=== PATIENT | female | born 1985 | race Two or more races ===

== ENCOUNTER 2024-10-22 21:04 | Emergency (ER) | payer MEDICAID, SELFPAY ==
[2024-10-22 21:05] VITALS: BMI 40.7
--- NOTE | 2024-10-22 21:08 | EKG_ITS ---
[facility] Test Date: 2024-10-22 Pat Name: GENNA MANE Department: Room: - Gender: Female Table Tender: : 1985 Requested By: ED Temporary Provider Order Number: [id number] Reading MD: ED Temporary Provider Measurements Intervals [place] Rate: 76 P: 48 MS: 153 QRS: 12 QRSD: 105 T: 49 QT: 381 QTc: 429 Interpretive Statements SINUS RHYTHM NONSPECIFIC T-WAVE ABNORMALITY No previous ECG available for comparison /[id number]/S0/[id number].pdf
[2024-10-22 21:36] VITALS: BP 155/98; PULSE 78; RESP 18; TEMP 36.8; O2SAT 98
--- NOTE | 2024-10-22 21:58 | XR_ITS ---
Examination: PA chest single view TECHNIQUE: Upright PA chest single view Date and time:: October 22, 2024 10:11 PM INDICATIONS: Chest pain shortness of breath beginning several weeks ago. FINDINGS: Poor inspiratory effort Normal heart size. No pneumonia or pulmonary edema. Osseous structures are intact IMPRESSION: No pneumonia or pulmonary edema
--- NOTE | 2024-10-22 22:02 | PD.EDCHEST ---
ED Chest Pain RME/HPI General Chief Complaint: Chest Pain Stated Complaint: Chest Pain x20 mins Time Seen by Provider: 10/22/24 21:57 Arrival date/time: 10/22/24 21:04 39F with no significant PMH presents to ED with several weeks of intermittent CP and SOB. Limitations: no limitations Related Data Previous Rx's ?Medication ?Instructions ?Recorded polymyxin B sulfate 10,000 1 drp ophthalmic (eye) Q3H #10 mL 09/11/20 unit-trimethoprim 1 mg/mL eye drops Allergies Allergy/AdvReac Type Severity Reaction Status Date / Time No Known Allergies Allergy Verified 09/11/20 14:53 Review of Systems Review of Systems Systems Reviewed: All systems reviewed, normal except as documented Constitutional Constitutional: Reports system reviewed and no additional complaints, except as documented, Denies fever(s) and Denies headache(s) ENT Ears, Nose, Mouth, and Throat: Denies disequilibrium and Denies headache(s) Cardiovascular Cardiovascular: Reports system reviewed and no additional complaints, except as documented, Reports as per HPI, Reports chest pain and Reports dyspnea Respiratory Respiratory: Reports system reviewed and no additional complaints, except as documented, Denies cough and Reports dyspnea Gastrointestinal Gastrointestinal: Reports system reviewed and no additional complaints, except as documented, Denies abdominal pain, Denies nausea and Denies vomiting Neurologic Neurologic: Reports system reviewed and no additional complaints, except as documented, Denies confusion, Denies disequilibrium and Denies headache(s) Psychiatric Psychiatric: Denies confusion Past Medical History Social History SMOKING STATUS: Never smoker ED Exam General Limitations: Present no limitations General appearance: Present alert, in no apparent distress and anxious Head Head exam: Present atraumatic Eye Eye exam: Present normal appearance, PERRL and EOMI ENT ENT exam: Present normal exam, normal oropharynx and mucous membranes moist Neck Neck exam: Present normal inspection, full ROM and trachea midline Chest Chest inspection: Present normal inspection and symmetric chest wall rise Respiratory Respiratory exam: Present normal lung sounds bilaterally Cardiovascular Cardiovascular exam: Present regular rate, normal rhythm and normal heart sounds Abdominal Exam Abdominal exam: Present soft and normal bowel sounds Extremities Exam Extremities exam: Present normal inspection and full ROM Back Exam Back exam: Present normal inspection and full ROM Neurological Exam Neurological exam: Present alert, oriented X3 and CN II-XII intact Psychiatric Psychiatric exam: Present normal affect and normal mood Skin Skin exam: Present warm, dry, intact and normal color Course Quality Measures none Orders Category Date Time Status EKG (ED ONLY) *Do not use* NOW Care 10/22/24 21:08 Completed EKG (ED Only) Stat Exams 10/22/24 21:08 Draft XR chest 1V portable Stat Exams 10/22/24 21:58 Completed B-Type Natriuretic Peptide Stat Lab 10/22/24 22:13 Completed CBC Stat Lab 10/22/24 22:13 Completed Comprehensive Metabolic Panel Stat Lab 10/22/24 22:13 Completed D-Dimer Stat Lab 10/22/24 22:13 Completed Troponin I Stat Lab 10/22/24 22:13 Completed Vital Signs Vital signs: Vital Signs Temperature 98.3 F 10/22/24 21:36 Pulse Rate 78 10/22/24 21:36 Respiratory Rate 18 10/22/24 21:36 Blood Pressure 155/98 H 10/22/24 21:36 Pulse Oximetry (%) 98 10/22/24 21:36 Oxygen Delivery Method Room Air 10/22/24 21:36 O2 at 98% on RA and WNLs Chest Pain MDM Narrative MDM Narrative:: 39F with no significant PMH presents to ED with several weeks of intermittent CP and SOB. Physical exam reveals clear lungs. Normal WOB. RRR. Patient is afebrile, alert, but anxious. EKG is NSR with non-specific T-wave changes. CXR unremarkable. Normal BNP, D-dimer, and trop. CMP unremarkable. No leukocytosis or gross anemia. Patient data External records reviewed:: [facility] previous records Clinical information provided by:: patient Social determinants that could affect healthcare access:: none Patient has the following chronic illnesses:: none How is presenting disease/condition affected by chronic disease/condition?: no chronic disease Evaluation data The following diagnostics were reviewed and interpreted by me:: lab results, radiology exam(s) and EKG tracing(s) Lab and/or radiology exams considered but not ordered:: ordered Interpretation Summary: above Medications / Prescriptions Medications or Prescriptions considered but not ordered:: not ordered Medication administrations:: n/a Consultations Consultation(s) initiated? (list below): No Diagnosis Chest Pain Differential Diagnosis: fracture of rib, pneumothorax, stable angina, unstable angina pectoris, atypical chest pain, st elevation myocardial infarction, costochondritis, chest pain, biliary colic and other (PE) Most likely diagnosis given after review of the tests above:: atypical chest pain Admission Indicated Admission indicated?: not indicated Admission Request Was there a request for admission?: No Disposition Plan Disposition Plan: Discharge Discharge Attestation Discharge Attestation: The patient and all family members were given an opportunity to ask questions and understood the discharge instructions. Discharge instructions specifically effects, indications for sooner follow up or return to the emergency department, and the expected course of current diagnosis. Patient condition: Stable Discharge Plan Plan Patient Disposition: HOME (Self Care) Discharge Disposition comment: Stable Prescriptions/Referrals Prescriptions/Med Rec: No Action polymyxin B sulf-trimethoprim 10,000 unit- 1 mg/mL drops 1 drp ophthalmic (eye) Q3H Qty: 10 0RF Rx Instructions: while awake; do not exceed 6 doses in 24 hours Referrals: No Primary/Family,Physician [Primary Care Provider] - In 1 week Problem List Clinical Impression: Atypical chest pain Patient/Caregiver Discharge Instructions Education Materials: ED Chest Pain, Uncertain Cause Additional Instructions: Please follow-up with PCP within 24-48 hours and return immediately if symptoms worsen. Print Language: Polish Stand Alone Forms: Work/School Release, Patient Portal Info Letter PA/CENTRIFUGE SEPARATOR OPERATOR Supervising Physician RICARDO/CEASAR Supervising Physician: Dr. Raymundo
[2024-10-22 22:27] LABS: Basophils # (Auto) 0.0 Thou/mm3 (0.0-0.2); Basophils % (Auto) 0 % (0-2.5); Eosinophils # (Auto) 0.2 Thou/mm3 (0.0-0.5); Eosinophils % (Auto) 2 % (0-10); Hematocrit 39.7 % (36.0-46.0); Hemoglobin 13.0 g/dL (12.0-16.0); Immature Granulocytes Auto 0.02 Thou/mm3 (0.00-0.00); Lymphocytes # (Auto) 2.7 Thou/mm3 (1.0-4.8); Lymphocytes % (Auto) 30 % (10-50); Mean Corpuscular HGB Conc 32.7 g/dl (31.0-37.0); Mean Corpuscular Hemoglobin 27.8 pg (25.0-35.0); Mean Corpuscular Volume 85 fL (80-100); Monocytes # (Auto) 0.6 Thou/mm3 (0.0-0.8); Monocytes % (Auto) 6 % (0-12); Neutrophils # (Auto) 5.5 Thou/mm3 (1.8-7.7); Neutrophils % (Auto) 61 % (37-80); Nucleated Red Blood Cell # 0.00 Thou/mm3 (0.00-0.00); Nucleated Red Blood Cell % 0 /100 WBC (0); Platelet Count 270 Thou/mm3 (140-440); RDW Standard Deviation 43.8 fL (36.4-46.3); Red Blood Count 4.68 Miln/mm3 (4.00-5.20); White Blood Count 9.0 Thou/mm3 (3.6-11.0)
[2024-10-22 22:34] LABS: B-Type Natriuretic Peptide < 20 pg/mL (0-100)
[2024-10-22 22:35] LABS: Alanine Aminotransferase 26 U/L (10-49); Albumin, Serum 4.1 gm/dL (3.5-5.0); Albumin/Globulin Ratio 1.7 (1.2-2.2); Alkaline Phosphatase 94 U/L (46-116); Anion Gap 8 (7-16); Aspartate Amino Transferase 25 U/L (0-34); BUN/Creatinine Ratio 20 Ratio (12-20); Bilirubin,Total 0.2 mg/dL (0.3-1.2); Blood Urea Nitrogen 12 mg/dL (9-23); Calcium 9.4 mg/dL (8.3-10.6); Calcium (Corrected) 9.4 mg/dL (8.5-10.1); Carbon Dioxide 30.6 mMol/L (20.0-31.0); Chloride 105 mMol/L (98-107); Creatinine (Component) 0.6 mg/dL (0.6-1.3); Estimated Creatinine Clearance 168.9 mL/min (>60); Globulin 2.4 gm/dL (2.3-3.5); Glucose 102 mg/dL (74-106); Osmolality,Calculated 286 (275-295); Potassium 3.3 mMol/L (3.4-5.1); Sodium 144 mMol/L (136-145); Total Protein 6.5 gm/dL (5.7-8.2); Troponin I < 0.002 ng/mL (0.0-0.045); eGFR > 60 See Note
[2024-10-22 22:50] LABS: D-Dimer < 250 ng/mL (<600)
== END 2024-10-22 23:19 | disposition home or self-care (01) ==
PROVIDERS: Physician Assistant; Emergency Provider Emergency Medicine
DX: R07.89 Other chest pain (principal); R06.02 Shortness of breath
CPT/HCPCS: 36415; 71045; 80053; 83880; 84484; 85025; 85379; 93005; 99283

== ENCOUNTER 2024-12-07 08:55 | Emergency (ER) | payer MEDICAID, SELFPAY ==
[2024-12-07 08:57] VITALS: BMI 44.6
[2024-12-07 09:26] VITALS: BP 150/99; PULSE 67; RESP 18; TEMP 36.6; O2SAT 98
--- NOTE | 2024-12-07 10:32 | EDNOTE_ITS ---
ED Female Urogenital RME/HPI General Chief complaint: Urogenital-Female Stated complaint: ITCHING IN PRIVATES SINCE YESTERDAY Time Seen by Provider: 12/07/24 09:06 Arrival date/time: This is a 39-year-old female comes into the emergency room with complaints of irritation outside her vagina and labia area. Patient states that she was using some wipes to clean herself and she feels like that irritated her. Patient states she feels really itchy. Patient denies any vaginal pain vaginal discharge. Patient's states she has not been having intercourse in a long time. Patient does not suspect STI. she did not denies any fever nausea vomiting diarrhea. Related Data Previous Rx's ?Medication ?Instructions ?Recorded polymyxin B sulfate 10,000 1 drp ophthalmic (eye) Q3H #10 mL 09/11/20 unit-trimethoprim 1 mg/mL eye drops fluconazole 150 mg tablet 150 mg PO Q3D 2 doses #2 tab s 12/07/24 Allergies Allergy/AdvReac Type Severity Reaction Status Date / Time No Known Allergies Allergy Verified 12/07/24 08:58 Review of Systems Review of Systems Systems Reviewed: All systems reviewed, normal except as documented Past Medical History Social History SMOKING STATUS: Never smoker ED Exam Narrative Physical exam: VITAL SIGNS: Reviewed. GENERAL APPEARANCE: Alert and interactive, follows commands, no acute distress HEAD AND FACE: Non-traumatic. ENT: PERRL, conjuctiva pink and clear, eyelid no trauma, Mucous membrane moist. NECK: Supple, nontender, no nuchal rigidity. CHEST: No tenderness, no crepitus, no paradoxical movement, no retractions. LUNGS: breathing even and unlabored HEART: Regular rate, cap refill less than 2 seconds ABDOMEN: Soft, nondistended, no guarding, nontender, no rebound, no masses, NEUROLOGICAL: Gross motor function intact sensory function intact, Appropriate for age. MUSCULOSKELETAL: low back nontender, full range of motion. no midline tenderness, no meningismus, no step offs EXTREMITIES: No redness no swelling no skin breakdown on bilateral foot and leg. Distal neurovascular status intact bilateral foot SKIN: Color pink, dry, Victoria supervisor microwave with me in room as I assesssed skin around vagina area. Skin looks irritated but theres no lesions or open wounds Course Quality Measures none Orders Category Date Time Status HCG Qualitative,Urine Stat Lab 12/07/24 10:33 Completed Urinalysis, C/S if Indicated Stat Lab 12/07/24 10:33 Completed Vital Signs Vital signs: Vital Signs Temperature 97.8 F 12/07/24 09:26 Pulse Rate 67 12/07/24 09:26 Respiratory Rate 18 12/07/24 09:26 Blood Pressure 150/99 H 12/07/24 09:26 Pulse Oximetry (%) 98 12/07/24 09:26 Oxygen Delivery Method Room Air 12/07/24 09:26 Urogenital - Female MDM Narrative MDM Narrative:: I spoke to patient at length. I told her that if the wipes are irritating her not to use them anymore. I told her to keep her skin around her labia clean and dry. Patient also complains of feeling itchy. Will give her Diflucan and treat her for possible fungal infection outside. Skin only mildly irritated. Patient states she is anamaria see her primary doctor to get a full pelvic and physical. Patient told to come back to the emergency room symptoms change or worsen. Patient verbalized understanding and feels comfortable plan of care. Dragon dictation: Although this document has been carefully reviewed, there may still be some phonetic and other typographical errors. These errors are purely grammatical due to imperfections in the software program and should not be construed in any way to compromise the substance of the patient's medical care during this visit. Patient data External records reviewed:: [facility] previous records Clinical information provided by:: patient Social determinants that could affect healthcare access:: none Patient has the following chronic illnesses:: None How is presenting disease/condition affected by chronic disease/condition?: no chronic disease Evaluation data The following diagnostics were reviewed and interpreted by me:: lab results Lab and/or radiology exams considered but not ordered:: None Interpretation Summary: See note Medications / Prescriptions Medications or Prescriptions considered but not ordered:: None Medication administrations:: See note Consultations Consultation(s) initiated? (list below): No Diagnosis Urogenital Female Differential Diagnosis: urinary tract infection, bacterial vaginosis and other (Yeast infection) Most likely diagnosis given after review of the tests above:: Vaginal yeast infection Admission Indicated Admission indicated?: not indicated Admission Request Was there a request for admission?: No Disposition Plan Disposition Plan: Discharge Discharge Attestation Discharge Attestation: The patient and all family members were given an opportunity to ask questions and understood the discharge instructions. Discharge instructions specifically effects, indications for sooner follow up or return to the emergency department, and the expected course of current diagnosis. Patient condition: Stable Discharge Plan Plan Patient Disposition: HOME (Self Care) Patient condition on transfer: Stable Prescriptions/Referrals Prescriptions/Med Rec: New fluconazole 150 mg tablet 150 mg PO Q3D Qty: 2 0RF Rx Instructions: may repeat second dose 72 hrs after first dose if symptoms persist No Action polymyxin B sulf-trimethoprim 10,000 unit- 1 mg/mL drops 1 drp ophthalmic (eye) Q3H Qty: 10 0RF Rx Instructions: while awake; do not exceed 6 doses in 24 hours Referrals: Georgette Garcia PAIRING MACHINE OPERATOR [Primary Care Provider] - In 1 week Problem List Clinical Impression: Vaginal irritation Patient/Caregiver Discharge Instructions Discharge Activity: activity as tolerated Education Materials: Candidiasis Vaginal Additional Instructions: Follow up with primary provider in 1-2 days. Come back to ED if symptoms change or worsen. Print Language: Macedonian Stand Alone Forms: Scarlett Award Info., Work/School Release, Patient Portal Info Letter RICARDO/CEASAR Supervising Physician RICARDO/CEASAR Supervising Physician: sai
[2024-12-07 10:39] LABS: Collection Type, Urine Voided
[2024-12-07 11:09] LABS: Bilirubin,Urine Negative (Negative); Blood,Urine Negative (Negative); Clarity,Urine Clear (Clear/Hazy); Color,Urine Yellow (Lt Yel-Yel); Culture Indicated,Urine Not Indicated; Glucose, Urine Negative (Negative); Ketones,Urine Negative (Negative); Leukocyte Esterase,Urine Positive (Negative); Nitrite,Urine Negative (Negative); PH,Urine 6.0 (5.0-7.0); Protein,Urine Trace (Neg - Trace); RBC,Urine < 1 /hpf (0-3); Specific Gravity,Urine 1.032 (1.001-1.035); Squamous Epithelial Cell,Urine 3 /hpf (0-5); Urobilinogen,Urine Negative mg/dL (0.0-1.0); WBC,Urine 2 /hpf (0-5)
[2024-12-07 11:15] LABS: HCG Qualitative,Urine Negative
== END 2024-12-07 12:15 | disposition home or self-care (01) ==
PROVIDERS: Nurse Practitioner Family; Emergency Provider Emergency Medicine; PCP Nurse Practitioner Family
DX: N89.8 Other specified noninflammatory disorders of vagina (principal)
CPT/HCPCS: 81001; 81025; 99283

== ENCOUNTER 2025-01-18 19:18 | Emergency (ER) | payer MEDICAID, SELFPAY ==
[2025-01-18 19:19] VITALS: BMI 43.8
[2025-01-18 19:39] VITALS: BP 149/98; PULSE 73; RESP 18; TEMP 36.8; O2SAT 96
[2025-01-18 19:51] VITALS: BP 145/89; PULSE 70; RESP 18; TEMP 36.8; O2SAT 95
--- NOTE | 2025-01-18 19:58 | PD.EDABDPN ---
ED Abdominal Pain RME/HPI General Chief Complaint: Abdominal Pain Stated complaint: ABD PAIN Arrival date/time: 01/18/25 19:18 RME / HPI RME / HPI narrative: CC: abdominal pain Patient is a 39 year old female with a past medical history of abdominal pain who presented to the emergency room via private vehicle with a chief complain of abdominal pain. Abdominal pain has been on going for several day but made worse today. Pain starts at the umbilical region, 7/10, and does not radiate any where. Pain sometimes made worse with food but does not have a pattern. No hematemesis. No diarrhea. Yes, constipation. Patient denied chest pain or epigastric pain.Patient has a US gallbladder scheduled as well as a KUB. Patient is refusing all work up-including images such as gallbladder and KUB, which is scheduled outpatient. Refusing all blood work Related Data Previous Rx's ?Medication ?Instructions ?Recorded polymyxin B sulfate 10,000 1 drp ophthalmic (eye) Q3H #10 mL 09/11/20 unit-trimethoprim 1 mg/mL eye drops polyethylene glycol 3350 17 4 g PO QDAY Constipation 1 month 01/18/25 gram/dose oral powder (Miralax) #120 grams Allergies Allergy/AdvReac Type Severity Reaction Status Date / Time No Known Allergies Allergy Verified 01/18/25 19:18 Review of Systems Review of Systems Narrative Review of Systems: General appearance: NO weight change, NO fatigue, NO weakness, NO fever, NO chills, NO night sweats, No cough Skin: NO rash, NO itching, NO sores, NO moles HEENT: NO Trauma, NO nausea, NO vomiting, NO visual changes, NO blurry vision, NO double vision, NO tinnitus, NO vertigo, NO ear discharge, NO rhinorrhea, NO stuffiness, NO sneezing, NO allergy, NO epistaxis. NO Hoarseness, NO sore throat, NO swollen neck. Cardiac: NO Palpitations, NO dyspnea on exertion, NO orthopnea, NO paroxysmal nocturnal dyspnea, NO edema Respiratory: NO Shortness of Breath, NO Wheezing, NO Cough, NO Sputum, NO hemoptysis GI:NO appetite, NO nausea, NO vomiting, NO dysphagia, NO changes in bowel frequency, NO stool color, NO diarrhea, NO constipation, NO hemetemesis, NO hemorrhoids, NO melena, NO hematechezia, Yes abdominal pain-at the bellybutton region, NO jaundice, Yes-constipation/off and on Renal: NO frequency, NO hesitancy, NO urgency, NO hematuria, NO nocturia, NO incontinence MSK: NO muscle weakness, NO gout, NO arthritis, NO muscle stiffness Neuro: NO headaches, NO tremors, NO weakness, NO paralysis, NO seizures, NO loss of consciousness, NO numbness. Hem: NO anemia, NO easy bruising/bleeding, NO petechiae, NO purpura Endo: NO heat/cold intolerance, NO excessive sweating, NO polyuria, NO polydipsia, NO polyphagia, NO thyroid problems, NO diabetes Pysch: NO mood, NO anxiety, NO depression ED Exam Narrative Physical exam: General Appearance: Alert & Oriented X3, well-nourished female who is lying in bed in NO acute distress HEENT: Skull symmetrical and atraumatic. Conjunctivae pin and moist. Pupils equal, round, reactive to light and accommodation (PERRL). External ear without lesion or discharge. Straight, nares patient, mucosa pink, no discharge. Cardio: Normal Rate and Rhythm with S1 and S2 heart sounds. No murmurs or extra heart sounds auscultated. No bruits on carotid auscultation. No peripheral edema or cyanosis. Lungs: Symmetric with good expansion. Chest and back non-tender. Breath sounds vesicular without crackles, wheezing or rhonchi Abdomen: Mild tenderness, Non-distended, No tympanic, Normal Reactive Bowel Sounds, Neuro: Alert, cooperative, oriented to person, place, and time. Speech clear. CN grossly intact. Upper motor strength 5/5 and Lower motor strength 5/5. Sensation intact. Course Quality Measures none Orders Category Date Time Status Famotidine [Pepcid] Med 01/18/25 19:58 Once 20 mg PO X1 ONE Vital Signs Vital signs: Vital Signs Temperature 98.3 F 01/18/25 19:39 Pulse Rate 73 01/18/25 19:39 Respiratory Rate 18 01/18/25 19:39 Blood Pressure 149/98 H 01/18/25 19:39 Pulse Oximetry (%) 96 01/18/25 19:39 Oxygen Delivery Method Room Air 01/18/25 19:39 Abdominal Pain MDM Patient data External records reviewed:: [facility] previous records Clinical information provided by:: patient Social determinants that could affect healthcare access:: none Patient has the following chronic illnesses:: HTN obesity How is presenting disease/condition affected by chronic disease/condition?: uneffected by (by HTN ) Evaluation data The following diagnostics were reviewed and interpreted by me:: lab results and radiology exam(s) Lab and/or radiology exams considered but not ordered:: Denied all labs & images Interpretation Summary: None Medications / Prescriptions Medications or Prescriptions considered but not ordered:: none Medication administrations:: Medication Administration History Famotidine (Famotidine 20 Mg Tablet) 20 mg PO X1 ONE Stop: 01/18/25 19:59 same as above Consultations Consultation(s) initiated? (list below): No Diagnosis Differential diagnosis abdominal pain: calculus of kidney, constipation and pancreatitis (cholethiasis ) Most likely diagnosis given after review of the tests above:: Patient declined all test & images but concern for abdominal pain - The patient's plan was discussed with attending Dr. Bon Hahn MD PGY2 Internal Medicine Admission Indicated Admission indicated?: not indicated Admission Request Was there a request for admission?: No Disposition Plan Disposition Plan: Discharge Discharge Attestation Discharge Attestation: The patient and all family members were given an opportunity to ask questions and understood the discharge instructions. Discharge instructions specifically effects, indications for sooner follow up or return to the emergency department, and the expected course of current diagnosis. Patient condition: Stable Discharge Plan Plan Patient Disposition: HOME (Self Care) Health Concerns: Instruction: -Please take Miralax for regular bowel movements -Patient declined all labs and images for abdominal pain. -Please follow up with your primary care provider within one week of discharge and follow up on scheduled all outpatient images/labs -If your symptoms worsen,please seek immediate medical attention and return to your nearest emergency room -If you do not have a primary care provider, you may follow up at the [facility] at [address], [place] [address], Prescriptions/Referrals Prescriptions/Med Rec: New polyethylene glycol 3350 [Miralax] 17 gram/dose powder 4 g PO QDAY 30 Days Qty: 120 0RF Continued polymyxin B sulf-trimethoprim 10,000 unit- 1 mg/mL drops 1 drp ophthalmic (eye) Q3H Qty: 10 0RF Rx Instructions: while awake; do not exceed 6 doses in 24 hours Discontinued fluconazole 150 mg tablet 150 mg PO Q3D Qty: 2 0RF Rx Instructions: may repeat second dose 72 hrs after first dose if symptoms persist Problem List Clinical Impression: Abdominal pain Patient/Caregiver Discharge Instructions Education Materials: Abdominal Pain Print Language: Icelandic Stand Alone Forms: Scarlett Award Info., Work/School Release, Patient Portal Info Letter
== END 2025-01-18 20:22 | disposition home or self-care (01) ==
LOC: SERX 20:24
PROVIDERS: Emergency Provider Emergency Medicine; PCP Physician Assistant
DX: R10.9 Unspecified abdominal pain (principal)
CPT/HCPCS: 99281

== ENCOUNTER 2025-02-01 18:41 | Emergency (ER) | payer MEDICAID, SELFPAY ==
[2025-02-01 18:42] VITALS: BMI 43.8
--- NOTE | 2025-02-01 19:45 | XR_ITS ---
Examination: CT abdomen and pelvis without contrast. Coronal 3-D reconstructions. Sagittal 2-D reconstructions. Date and time of exam: February 01, 2025, 10:30 p.m. INDICATIONS: Right lower abdominal pain beginning 4 hours ago CTDI: vol (mGy): 18.3 DLP: (mGycm): 1054 Technique: Axial images of the abdomen have been obtained, 3 mm slice thickness Intravenous contrast material has not been administered. Low dose protocols were performed. One or more of the following dose reduction techniques were used; automated exposure control, adjustment of the mA and/or KV according to patient size, use of iterative reconstruction technique. Findings: No focal liver or splenic lesion No gallstones No pancreatic or adrenal mass Mild renal scar formation No renal or ureteral calculi, no hydronephrosis Aorta normal size No bowel obstruction Normal appendix No diverticulitis Contracted urinary bladder Mild prominence fundus of the uterus IMPRESSION: No renal or ureteral calculi, no hydronephrosis Normal appendix No bowel obstruction diverticulitis or free air Mild distention posteriorly L5-S1 Mild enlargement fundus of the uterus, consider pelvic sonography follow-up
[2025-02-01 19:47] VITALS: BP 159/95; PULSE 74; RESP 18; TEMP 36.7; O2SAT 95
[2025-02-01 20:21] LABS: Basophils # (Auto) 0.0 Thou/mm3 (0.0-0.2); Basophils % (Auto) 0 % (0-2.5); Eosinophils # (Auto) 0.2 Thou/mm3 (0.0-0.5); Eosinophils % (Auto) 3 % (0-10); Hematocrit 37.7 % (36.0-46.0); Hemoglobin 12.0 g/dL (12.0-16.0); Immature Granulocytes Auto 0.02 Thou/mm3 (0.00-0.00); Lymphocytes # (Auto) 2.3 Thou/mm3 (1.0-4.8); Lymphocytes % (Auto) 32 % (10-50); Mean Corpuscular HGB Conc 31.8 g/dl (31.0-37.0); Mean Corpuscular Hemoglobin 26.5 pg (25.0-35.0); Mean Corpuscular Volume 83 fL (80-100); Monocytes # (Auto) 0.7 Thou/mm3 (0.0-0.8); Monocytes % (Auto) 9 % (0-12); Neutrophils # (Auto) 3.9 Thou/mm3 (1.8-7.7); Neutrophils % (Auto) 55 % (37-80); Nucleated Red Blood Cell # 0.00 Thou/mm3 (0.00-0.00); Nucleated Red Blood Cell % 0 /100 WBC (0); Platelet Count 298 Thou/mm3 (140-440); RDW Standard Deviation 43.8 fL (36.4-46.3); Red Blood Count 4.52 Miln/mm3 (4.00-5.20); White Blood Count 7.1 Thou/mm3 (3.6-11.0)
[2025-02-01 20:47] LABS: Alanine Aminotransferase 28 U/L (10-49); Albumin, Serum 4.4 gm/dL (3.5-5.0); Albumin/Globulin Ratio 1.6 (1.2-2.2); Alkaline Phosphatase 73 U/L (46-116); Anion Gap 8 (7-16); Aspartate Amino Transferase 20 U/L (0-34); BUN/Creatinine Ratio 22 Ratio (12-20); Bilirubin,Total 0.2 mg/dL (0.3-1.2); Blood Urea Nitrogen 13 mg/dL (9-23); Calcium 9.2 mg/dL (8.3-10.6); Calcium (Corrected) 9.2 mg/dL (8.5-10.1); Carbon Dioxide 28.5 mMol/L (20.0-31.0); Chloride 108 mMol/L (98-107); Creatinine (Component) 0.6 mg/dL (0.6-1.3); Estimated Creatinine Clearance 176.1 mL/min (>60); Globulin 2.7 gm/dL (2.3-3.5); Glucose 100 mg/dL (74-106); Lipase 56 U/L (12-53); Osmolality,Calculated 286 (275-295); Potassium 3.7 mMol/L (3.4-5.1); Sodium 144 mMol/L (136-145); Total Protein 7.1 gm/dL (5.7-8.2); eGFR > 60 See Note
[2025-02-01 21:47] LABS: Collection Type, Urine Clean Catch
[2025-02-01 21:53] LABS: HCG Qualitative,Urine Negative
[2025-02-01 22:04] LABS: Bacteria,Urine Rare; Bilirubin,Urine Negative (Negative); Blood,Urine Negative (Negative); Clarity,Urine Turbid (Clear/Hazy); Color,Urine Yellow (Lt Yel-Yel); Glucose, Urine Negative (Negative); Ketones,Urine Trace (Negative); Leukocyte Esterase,Urine Positive (Negative); Nitrite,Urine Negative (Negative); PH,Urine 6.5 (5.0-7.0); Protein,Urine 1+ (Neg - Trace); RBC,Urine 6 /hpf (0-3); Specific Gravity,Urine 1.035 (1.001-1.035); Squamous Epithelial Cell,Urine 34 /hpf (0-5); Urobilinogen,Urine 3.0 mg/dL (0.0-1.0); WBC,Urine 32 /hpf (0-5)
--- NOTE | 2025-02-01 23:28 | XR_ITS ---
Examination: Pelvic ultrasound, transabdominal, complete Technique: Transabdominal ultrasound of the pelvis performed using grayscale imaging Date and time of exam: February 01, 2025, 2356 hours INDICATIONS: Abdominal pain several months right lower abdomen pain beginning 1 hour ago, enlarged fundus of the uterus on CT examination February 01, 2025 2230 hours FINDINGS: Enlarged uterus 9.8 x 4.8 x 5.5 cm, no discrete uterine mass Endometrial stripe 0.4 cm Ovaries obscured by bowel gas IMPRESSION: Moderate enlargement of the uterus without discrete mass
[2025-02-02 00:45] VITALS: BP 150/91; PULSE 76; RESP 18; TEMP 36.9; O2SAT 96
[2025-02-02 01:17] VITALS: BP 141/90; PULSE 58; RESP 18; TEMP 36.5; O2SAT 96
--- NOTE | 2025-02-02 01:35 | PRELIM_ITS ---
Pelvic ultrasound (transabdominal). February 01, 2025 at 2356 hours Clinical history: Pelvic pain Technique: Real-time, grayscale, transabdominal pelvic ultrasound was performed using Duplex scanning including arterial inflow, venous outflow, color and spectral Doppler. Comparison: No prior study is available for comparison. Findings and impression: Bulky appearing uterus is seen measuring 9.8 x 5.5 x 4.8 cm. The endometrium is unremarkable and measures 0.4 cm. The right ovary is not visualized due to bowel gas. The left ovary is not visualized due to bowel gas. There is no free fluid on the submitted images. Report Electronically Signed By: Juan Mendiola 02/02/2025 1:35:07 AM [EST]
[2025-02-02 03:10] VITALS: RESP 16
--- NOTE | 2025-02-02 05:12 | PD.EDABDPN ---
ED Abdominal Pain RME/HPI General Chief Complaint: Abdominal Pain Stated complaint: DIZZY, RLQ ABD PAIN X1 HR Time seen by provider: 02/01/25 19:18 Arrival date/time: 02/01/25 18:41 This is a case of 39-year-old female who came in in the emergency room due to abdominal pain mostly on both lower abdomen for 1 day associated with nausea vomiting and dizzy persistence of the symptoms this patient decided to sought consult here in the emergency room Limitations: no limitations Related Data Previous Rx's ?Medication ?Instructions ?Recorded polymyxin B sulfate 10,000 1 drp ophthalmic (eye) Q3H #10 mL 09/11/20 unit-trimethoprim 1 mg/mL eye drops polyethylene glycol 3350 17 4 g PO QDAY Constipation 1 month 01/18/25 gram/dose oral powder (Miralax) #120 grams cephalexin 500 mg capsule 500 mg PO QID #40 caps 02/02/25 ibuprofen 800 mg tablet 800 mg PO Q8H PRN pain #20 tabs 02/02/25 meclizine 50 mg tablet 50 mg PO BID PRN dizziness #20 tabs 02/02/25 ondansetron 4 mg disintegrating 4 mg PO Q8H #20 tabs 02/02/25 tablet Allergies Allergy/AdvReac Type Severity Reaction Status Date / Time No Known Allergies Allergy Verified 02/01/25 18:44 Review of Systems Review of Systems Systems Reviewed: All systems reviewed, normal except as documented Constitutional Constitutional: Reports system reviewed and no additional complaints, except as documented and Reports as per HPI ENT Ears, Nose, Mouth, and Throat: Denies dysphagia and Denies odynophagia Cardiovascular Cardiovascular: Reports system reviewed and no additional complaints, except as documented and Reports as per HPI Respiratory Respiratory: Reports system reviewed and no additional complaints, except as documented and Reports as per HPI Gastrointestinal Gastrointestinal: Reports system reviewed and no additional complaints, except as documented, Reports as per HPI, Reports abdominal pain, Denies belching, Denies bloating, Denies change in bowel habits, Denies change in stool character, Denies coffee ground emesis, Denies constipation, Denies cramping, Denies diarrhea, Denies dyspepsia, Denies dysphagia, Denies early satiety, Denies excessive flatus, Denies fecal incontinence, Denies heartburn, Denies hematemesis, Denies hematochezia, Denies loose stools, Denies melena, Reports nausea, Denies odynophagia, Denies tenesmus and Reports vomiting Musculoskeletal Musculoskeletal: Reports system reviewed and no additional complaints, except as documented and Reports as per HPI Integumentary/Breasts Skin/Breast: Reports system reviewed and no additional complaints, except as documented and Reports as per HPI Neurologic Neurologic: Reports system reviewed and no additional complaints, except as documented and Reports as per HPI Past Medical History Social History SMOKING STATUS: Never smoker ED Exam General Limitations: Present no limitations General appearance: Present alert, in no apparent distress and other (Patient is awake alert oriented not in distress nontoxic looking well-hydrated well NOURISHED) Head Head exam: Present atraumatic, normocephalic and normal inspection Eye Eye exam: Present normal appearance, PERRL and EOMI ENT ENT exam: Present normal exam, normal oropharynx and mucous membranes moist Neck Neck exam: Present normal inspection, full ROM and trachea midline; Absent tenderness, meningismus, lymphadenopathy or thyromegaly Chest Chest inspection: Present normal inspection and symmetric chest wall rise; Absent tenderness Respiratory Respiratory exam: Present normal lung sounds bilaterally; Absent respiratory distress, wheezes, stridor, accessory muscle use or prolonged expiratory phase Cardiovascular Cardiovascular exam: Present regular rate, normal rhythm and normal heart sounds; Absent bradycardia, tachycardia, irregular rhythm, systolic murmur or diastolic murmur Abdominal Exam Abdominal exam: Present soft, tenderness (Mild tenderness on both lower abdomen no CVA tenderness) and normal bowel sounds; Absent distention, guarding, rebound, rigidity, diminished bowel sounds, hyperactive bowel sounds, hypoactive bowel sounds, organomegaly, trauma, psoas sign, obturator sign, Lopez's sign, Rovsing's sign, tenderness at McBurney's Point or hernia Extremities Exam Extremities exam: Present normal inspection and full ROM Back Exam Back exam: Present normal inspection and full ROM Neurological Exam Neurological exam: Present alert, oriented X3, CN II-XII intact and reflexes normal; Absent motor sensory deficit Psychiatric Psychiatric exam: Present normal affect and normal mood Skin Skin exam: Present warm, dry, intact, normal color and other (Excellent skin turgor) Course Quality Measures none Orders Category Date Time Status CT abdomen pelvis wo con Stat Exams 02/01/25 19:45 Completed US pelvic complete Stat Exams 02/01/25 23:28 Taken CBC Stat Lab 02/01/25 20:08 Completed Comprehensive Metabolic Panel Stat Lab 02/01/25 20:08 Completed HCG Qualitative,Urine Stat Lab 02/01/25 21:36 Completed Lipase Stat Lab 02/01/25 20:08 Completed Urinalysis Stat Lab 02/01/25 21:36 Completed Vital Signs Vital signs: Vital Signs Temperature 98.1 F 02/01/25 19:47 Pulse Rate 74 02/01/25 19:47 Respiratory Rate 18 02/01/25 19:47 Blood Pressure 159/95 H 02/01/25 19:47 Pulse Oximetry (%) 95 02/01/25 19:47 Oxygen Delivery Method Room Air 02/01/25 19:47 Patient is afebrile not tachycardic not tachypneic BP stable not hypoxic oxygen saturation is 95% and ROOM AIR Abdominal Pain MDM MDM Narrative MDM Narrative:: This is a case of 39-year-old female who came in in the emergency room due to abdominal pain mostly on both lower abdomen for 1 day associated with nausea vomiting and dizzy persistence of the symptoms this patient decided to sought consult here in the emergency room physical examination patient is awake alert oriented not in distress nontoxic looking well-hydrated well noURISHED excellent skin turgor no signs and symptoms of sepsis no signs or symptoms of dehydration abdominal exam is benign nonsurgical no guarding no rebound no rigidity mild tenderness on both lower abdomen negative psoas negative straight or negative Rovsing's negative McBurney's negative Lopez sign negative CVA tenderness blood test showed no leukocytosis no anemia kidney and liver function is normal no electrolyte imbalance lipase is slightly elevated but nonsignificant urinalysis showed WBC and RBC in the urine suggestive of urinary tract infection CT scan showed a enlarged uterus where it was confirmed by the pelvic ultrasound no ovarian torsion patient was discharged with cephalexin for urinary tract infection and ibuprofen and Zofran for vomiting patient dizziness persist resolved while waiting in the lobby patient will follow-up with PCP in 2 days for reevaluation and to be referred to OB [facility] for further evaluation and treatment of enlarged uterus for any worsening symptoms or any emergent concern return precaution in the ER is [id number] Patient was discharged with comfortable condition walking with stable gait. Patient verbalized no further complains explained diagnosis and answered patient question. Patient is comfortable with the proposed management plan including the need to follow up with his/her primary care physician and any specialist if applicable Discussed patient for any urgent condition or worsening sx, He/She needed to go to emergency room immediately or call 911. Patient acknowledge the responsibility to follow up as instructed and to monitor her/his symptoms. For any persistence of the symptoms for more than 3-5 days return precaution advised. Discussed the result of the test and was given printed discharge instruction Patient data External records reviewed:: [facility] previous records Clinical information provided by:: patient Social determinants that could affect healthcare access:: none Patient has the following chronic illnesses:: None How is presenting disease/condition affected by chronic disease/condition?: no chronic disease Evaluation data The following diagnostics were reviewed and interpreted by me:: lab results and radiology exam(s) Lab and/or radiology exams considered but not ordered:: reviewed Interpretation Summary: Reviewed Medications / Prescriptions Medications or Prescriptions considered but not ordered:: Given Medication administrations:: Given Consultations Consultation(s) initiated? (list below): No Diagnosis Differential diagnosis abdominal pain: abdominal pain, acute appendicitis, calculus of kidney, constipation, diverticulitis, endometriosis, gastroenteritis, pancreatitis and small bowel obstruction Most likely diagnosis given after review of the tests above:: Urinary tract infection Admission Indicated Admission indicated?: not indicated Explain why admission is indicated or not indicated:: Not indicated Admission Request Was there a request for admission?: No Admission Attestation Admission request attestation: Not indicated Disposition Plan Disposition Plan: Discharge Discharge Attestation Discharge Attestation: The patient and all family members were given an opportunity to ask questions and understood the discharge instructions. Discharge instructions specifically effects, indications for sooner follow up or return to the emergency department, and the expected course of current diagnosis. Patient condition: Stable Discharge Plan Plan Patient Disposition: HOME (Self Care) Patient condition on transfer: Stable Prescriptions/Referrals Prescriptions/Med Rec: New ondansetron 4 mg tablet,disintegrating 4 mg PO Q8H Qty: 20 0RF cephalexin 500 mg capsule 500 mg PO QID Qty: 40 0RF ibuprofen 800 mg tablet 800 mg PO Q8H PRN (Reason: pain) Qty: 20 0RF meclizine 50 mg tablet 50 mg PO BID PRN (Reason: dizziness) Qty: 20 0RF No Action polymyxin B sulf-trimethoprim 10,000 unit- 1 mg/mL drops 1 drp ophthalmic (eye) Q3H Qty: 10 0RF Rx Instructions: while awake; do not exceed 6 doses in 24 hours polyethylene glycol 3350 [Miralax] 17 gram/dose powder 4 g PO QDAY 30 Days Qty: 120 0RF Referrals: No Primary/Family,Physician [Primary Care Provider] - In 1 week Problem List Clinical Impression: Abdominal pain, Urinary tract infection, Enlarged uterus Patient/Caregiver Discharge Instructions Education Materials: Abdominal Pain, Urinary Tract Infections in Women Additional Instructions: Follow-up with your primary care physician in 2 days for reevaluation and to be referred to OB [facility] for further evaluation and treatment of enlarged uterus worsening symptoms or any emergent concern call 911 or go to the nearest emergency room take your medication as directed finish the course of antibiotic increase water intake keep hydrated Pedialyte Gatorade for hydration advised Print Language: Greenlandic Stand Alone Forms: Scarlett Award Info., Work/School Release, Patient Portal Info Letter PA/ADMINISTRATIVE ACCOUNTANT Supervising Physician PA/ADMINISTRATIVE ACCOUNTANT Supervising Physician: DR LOURDES BHATT
== END 2025-02-02 03:11 | disposition home or self-care (01) ==
PROVIDERS: Nurse Practitioner Family; Emergency Provider Emergency Medicine
DX: N39.0 Urinary tract infection, site not specified (principal); N85.2 Hypertrophy of uterus; R10.31 Right lower quadrant pain
CPT/HCPCS: 36415; 74176; 76856; 80053; 81001; 81025; 83690; 85025; 99283